=== PATIENT | male | born 1965 | race Caucasian/White ===

== ENCOUNTER → 2016-04-15 | Outpatient (CLI) | payer OTHER ==
[~2016-04-15] MED LIST: B-COCAP2 PO; ENAL1TAB29 PO; GEMF600T3 PO; GLC/500 PO; OMEG10007 PO; PRLSR20 PO; TRIA1SPR4 NAE
[2016-04-15 11:06] LABS: BASO % 0.5 %; BASO ABS # 0.04 K/uL (0-0.2); COMPLETE YES; EOS % 4.6 %; HEMATOCRIT 43.7 % (42-52); IG% 0.1 %; LYMPH % 29.9 %; LYMPH ABS # 2.48 K/uL (1.2-3.4); MEAN CELL VOLUME 92.4 fL (80-100); MEAN CORPUSCULAR HEMOGLOBIN 31.5 pg (25-34); MEAN CORPUSCULAR HGB CONC 34.1 g/dl (32-36); MEAN PLATELET VOLUME 10.9 fL (7.4-10.4); MONO % 6.3 %; NEUT % 58.6 %; PLATELET COUNT 301 K/uL (130-400); RED BLOOD COUNT 4.73 M/uL (4.7-6.1)
[2016-04-15 11:23] LABS: ALT/SGPT 25 U/L (12-78); AST/SGOT 17 U/L (15-37); BLOOD UREA NITROGEN 18 mg/dl (7-18); BUN/CREATININE RATIO 18.3 (10-20); CALCIUM 8.8 mg/dl (8.5-10.1); CARBON DIOXIDE 29 mmol/L (21-32); CHLORIDE 104 mmol/L (98-107); CHOLESTEROL 104 mg/dl (0-200); CREATININE 0.98 mg/dl (0.60-1.40); GLUCOSE 108 mg/dl (70-99); POTASSIUM 4.1 mmol/L (3.5-5.1); SODIUM 140 mmol/L (136-145); TRIGLYCERIDES 77 mg/dl (0-150); VERY LOW DENSITY LIPOPROT CALC 15 mg/dl
[2016-04-15 11:24] LABS: ESTIMATED AVERAGE GLUCOSE 117 mg/dl; HA1C FLAG Normal (Normal)
[2016-04-15 11:33] LABS: ALKALINE PHOSPHATASE 70 U/L (45-117); CHOLESTEROL/HDL RATIO 2.4; HDL CHOLESTEROL 43 mg/dl; LDL CHOLESTEROL CALCULATED 46 mg/dl
== END | disposition home or self-care (01) ==
LOC: C.LABBC 07:22
PROVIDERS: ATTEND Internal Medicine
DX: Z00.00 Encounter for general adult medical examination without abnormal findings (principal)

== ENCOUNTER → 2017-04-13 | Outpatient (CLI) | payer OTHER ==
[2017-04-13 11:15] LABS: HEMOGLOBIN A1C 5.7 % (4.5-5.6)
[2017-04-13 11:23] LABS: ALBUMIN 4.2 gm/dl (3.4-5.0); ALT/SGPT 30 U/L (12-78); AST/SGOT 18 U/L (15-37); BASO % 0.5 %; BASO ABS # 0.03 K/uL (0-0.2); BLOOD UREA NITROGEN 20 mg/dl (7-18); CALCIUM 8.6 mg/dl (8.5-10.1); CARBON DIOXIDE 27 mmol/L (21-32); CREATININE 1.03 mg/dl (0.60-1.40); EOS % 7.3 %; EOS ABS # 0.45 K/uL (0-0.5); GLUCOSE 115 mg/dl (70-99); HEMATOCRIT 43.2 % (42-52); HEMOGLOBIN 14.6 g/dL (14.0-18.0); IG# 0.01 K/uL (0.00-0.02); LYMPH ABS # 2.34 K/uL (1.2-3.4); MEAN CELL VOLUME 92.7 fL (80-100); MEAN CORPUSCULAR HEMOGLOBIN 31.3 pg (25-34); MEAN CORPUSCULAR HGB CONC 33.8 g/dl (32-36); MONO % 9.4 %; MONO ABS # 0.58 K/uL (0.11-0.59); NEUT % 44.6 %; NEUT ABS # 2.74 K/uL (1.4-6.5); PLATELET COUNT 281 K/uL (130-400); POTASSIUM 4.3 mmol/L (3.5-5.1); RED CELL DISTRIBUTION WIDTH CV 13.6 % (11.5-14.5); RED CELL DISTRIBUTION WIDTH SD 46.1 fL (36.4-46.3); SODIUM 137 mmol/L (136-145); WHITE BLOOD COUNT 6.15 K/uL (4.8-10.8)
[2017-04-13 11:28] LABS: ALKALINE PHOSPHATASE 67 U/L (45-117); CHOLESTEROL 102 mg/dl (0-200); LDL CHOLESTEROL CALCULATED 52 mg/dl; TOTAL PROTEIN 8.3 gm/dl (6.4-8.2)
== END | disposition home or self-care (01) ==
LOC: C.LABBC 07:55
PROVIDERS: ATTEND Internal Medicine
DX: I10 Essential (primary) hypertension (principal); K22.2 Esophageal obstruction; E78.5 Hyperlipidemia, unspecified; N20.1 Calculus of ureter; N40.1 Benign prostatic hyperplasia with lower urinary tract symptoms; R73.09 Other abnormal glucose; N20.0 Calculus of kidney; K21.9 Gastro-esophageal reflux disease without esophagitis

== ENCOUNTER → 2017-05-02 | Outpatient (CLI) | payer OTHER ==
[2017-05-02 11:19] LABS: BLOOD UREA NITROGEN 14 mg/dl (7-18); CALCIUM 8.8 mg/dl (8.5-10.1); CARBON DIOXIDE 29 mmol/L (21-32); CREATININE 0.99 mg/dl (0.60-1.40); GLUCOSE 112 mg/dl (70-99); POTASSIUM 4.1 mmol/L (3.5-5.1); SODIUM 137 mmol/L (136-145)
== END | disposition home or self-care (01) ==
LOC: C.LABBC 08:07
PROVIDERS: ATTEND Internal Medicine
DX: I10 Essential (primary) hypertension (principal)